=== PATIENT | female | born 1990 | race Caucasian/White ===

== ENCOUNTER 2021-07-06 06:46 | Emergency (ER) | payer MEDICAID, OTHER ==
[~2021-07-06] VITALS: Ht 165.1 cm; Wt 72.7 kg
[~2021-07-06 06:46] MED LIST: ARIP400S IM; LITH300C3 PO
[2021-07-06 07:51] LABS: COVID AG,FIA SOURCE NASOPHARYNGEAL
[2021-07-06 07:53] LABS: BASOPHILS % (AUTO) 0.2 % (0.0-2.0); EOSINOPHILS % (AUTO) 1.1 % (1.0-6.0); HEMOGLOBIN 10.2 g/dL (12.0-16.0); LYMPHOCYTES # (AUTO) 1.4 K/uL (1.0-4.8); LYMPHOCYTES % (AUTO) 21.1 % (22.0-44.0); MEAN CORPUSCULAR HEMOGLOBIN 23.5 pg (26.0-34.0); MEAN CORPUSCULAR HGB CONC 31.8 G/dL (31.0-37.0); MEAN CORPUSCULAR VOLUME 74 fL (80-100); MONOCYTES # (AUTO) 0.6 K/uL (0.1-1.0); MONOCYTES % (AUTO) 9.4 % (2.0-9.0); NEUTROPHILS # (AUTO) 4.4 K/uL (1.8-7.7); NEUTROPHILS % (AUTO) 68.2 % (40.0-70.0); PLATELET COUNT (AUTO) 301 K/uL (150-450); RED BLOOD CELL COUNT(AUTO) 4.33 MIL/uL (4.00-5.20); RED CELL DISTRIBUTION WIDTH 14.4 % (11.5-14.5)
[2021-07-06 08:05] LABS: ANION GAP 11 mmol/L (8-16); CALCIUM, TOTAL 8.9 mg/dL (8.8-10.5); CARBON DIOXIDE 23 mmol/L (22-29); CHLORIDE 105 mmol/L (98-107); CREATININE 0.63 mg/dL (0.60-1.30); GLOMERULAR FILTR. RATE CALC > 60 mL/min (>60); GLUCOSE,RANDOM 81 mg/dL (70-110); POTASSIUM 4.3 mmol/L (3.5-5.1); SODIUM SERUM 139 mmol/L (136-145); UREA NITROGEN, BLOOD 13 mg/dL (7-18)
[2021-07-06 08:11] LABS: ALANINE AMINOTRANSFERASE 45 U/L (12-78); ALBUMIN 3.4 g/dL (3.4-5.0); ALKALINE PHOSPHATASE 47 U/L (46-116); ASPARTATE AMINOTRANSFERASE 21 U/L (15-37); BILIRUBIN,TOTAL 0.1 mg/dL (0.1-1.0); TOTAL PROTEIN, SERUM 7.2 g/dL (6.4-8.2)
[2021-07-06 08:15] LABS: LITHIUM 0.27 mmol/L (0.60-1.20)
[2021-07-06 08:16] LABS: AMPHET/METH SCREEN,URINE NEGATIVE (NEGATIVE); BARBITURATE SCREEN, URINE NEGATIVE (NEGATIVE); BENZODIAZEPINES SCREEN,URINE NEGATIVE (NEGATIVE); CANNABINOID SCREEN,URINE NEGATIVE (NEGATIVE); COCAINE SCREEN,URINE NEGATIVE (NEGATIVE); METHADONE SCREEN, URINE NEGATIVE (NEGATIVE); OPIATE SCREEN,URINE NEGATIVE (NEGATIVE)
[2021-07-06 08:19] LABS: PHENCYCLIDINE SCREEN,URINE NEGATIVE (NEGATIVE)
[2021-07-06 09:30] VITALS: BP 110/65
== END 2021-07-06 10:27 | disposition home or self-care (01) ==
LOC: EMS 06:47
DX: F31.9 Bipolar disorder, unspecified (principal); Z79.899 Other long term (current) drug therapy; Z20.822 Contact with and (suspected) exposure to COVID-19
CPT/HCPCS: 36415; 80053; 80178; 80307; 85025; 87426; 99284; G0480

== ENCOUNTER 2021-07-20 09:07 | Inpatient (IN) | payer MEDICAID ==
[~2021-07-20] VITALS: Ht 160 cm; Wt 73.4 kg
[2021-07-20 10:03] LABS: BASOPHILS % (AUTO) 0.4 % (0.0-2.0); EOSINOPHILS % (AUTO) 1.1 % (1.0-6.0); HEMATOCRIT 33.4 % (36-46); HEMOGLOBIN 10.9 g/dL (12.0-16.0); LYMPHOCYTES # (AUTO) 1.4 K/uL (1.0-4.8); LYMPHOCYTES % (AUTO) 21.1 % (22.0-44.0); MEAN CORPUSCULAR HEMOGLOBIN 24.1 pg (26.0-34.0); MEAN CORPUSCULAR HGB CONC 32.7 G/dL (31.0-37.0); MEAN CORPUSCULAR VOLUME 74 fL (80-100); MONOCYTES # (AUTO) 0.5 K/uL (0.1-1.0); MONOCYTES % (AUTO) 7.5 % (2.0-9.0); NEUTROPHILS # (AUTO) 4.6 K/uL (1.8-7.7); NEUTROPHILS % (AUTO) 69.9 % (40.0-70.0); PLATELET COUNT (AUTO) 364 K/uL (150-450); RED BLOOD CELL COUNT(AUTO) 4.54 MIL/uL (4.00-5.20); RED CELL DISTRIBUTION WIDTH 16.1 % (11.5-14.5)
[2021-07-20 10:17] LABS: ANION GAP 10 mmol/L (8-16); CARBON DIOXIDE 25 mmol/L (22-29); CHLORIDE 105 mmol/L (98-107); CREATININE 0.67 mg/dL (0.60-1.30); GLOMERULAR FILTR. RATE CALC > 60 mL/min (>60); GLUCOSE,RANDOM 98 mg/dL (70-110); POTASSIUM 4.3 mmol/L (3.5-5.1); SODIUM SERUM 140 mmol/L (136-145); UREA NITROGEN, BLOOD 7 mg/dL (7-18)
[2021-07-20 10:23] LABS: ALANINE AMINOTRANSFERASE 38 U/L (12-78); ALBUMIN 3.4 g/dL (3.4-5.0); ALKALINE PHOSPHATASE 56 U/L (46-116); ASPARTATE AMINOTRANSFERASE 20 U/L (15-37); BILIRUBIN,TOTAL 0.1 mg/dL (0.1-1.0); TOTAL PROTEIN, SERUM 7.5 g/dL (6.4-8.2)
[2021-07-20] MEDS ORDERED: LORazepam 2 MG TABLET PO PRN (10:45)
[2021-07-20] MEDS ORDERED: HALOPERIDOL 5 MG TABLET PO PRN (10:45)
[2021-07-20 10:54] LABS: APPEARANCE,URINE CLEAR (CLEAR); BILIRUBIN,URINE NEGATIVE (NEGATIVE); GLUCOSE, URINE (UA) NEGATIVE (NEGATIVE); KETONES,URINE NEGATIVE (NEGATIVE); LEUKOCYTE ESTERASE ,URINE NEGATIVE (NEGATIVE); NITRATE,URINE NEGATIVE (NEGATIVE); OCCULT BLOOD,URINE NEGATIVE (NEGATIVE); PROTEIN,URINE NEGATIVE (NEGATIVE); UROBILINOGEN,URINE 0.2 mg/dL (<=1.0)
[2021-07-20 10:59] LABS: COVID AG,FIA SOURCE NASAL SWAB
[2021-07-20 10:59] LABS: AMPHET/METH SCREEN,URINE NEGATIVE (NEGATIVE); BARBITURATE SCREEN, URINE NEGATIVE (NEGATIVE); BENZODIAZEPINES SCREEN,URINE NEGATIVE (NEGATIVE); CANNABINOID SCREEN,URINE NEGATIVE (NEGATIVE); COCAINE SCREEN,URINE NEGATIVE (NEGATIVE); METHADONE SCREEN, URINE NEGATIVE (NEGATIVE); OPIATE SCREEN,URINE NEGATIVE (NEGATIVE)
[2021-07-20 11:00] LABS: PHENCYCLIDINE SCREEN,URINE NEGATIVE (NEGATIVE)
[2021-07-20 14:26] VITALS: BP 126/67
[2021-07-20 16:24] VITALS: BP 122/70
[2021-07-20] MEDS ORDERED: INFLUENZA VIRUS VACCINE QVS 2021-22 (6MO+)/PF 60 MCG/0.5 ML SYRINGE IM. ONE (16:30)
[2021-07-20] MEDS ORDERED: ALBUTEROL SULFATE HFA 90 MCG/PUFF 8 GM INHALER IH PRN (16:45)
[2021-07-20] MEDS ORDERED: GuaiFENesin/D-METHORPHAN [SUGAR-FREE] 200-20MG/10 ML SYRUP UDCUP PO PRN (16:45)
[2021-07-20] MEDS ORDERED: CloNIDine HCL 0.1 MG TABLET PO PRN (16:45)
[2021-07-20] MEDS ORDERED: IBUPROFEN 400 MG TABLET PO PRN (16:45)
[2021-07-20] MEDS ORDERED: DOCUSATE SODIUM 100 MG CAPSULE PO PRN (16:45)
[2021-07-20] MEDS ORDERED: NICOTINE 14 MG/24 HOUR PATCH TD PRN (16:45)
[2021-07-20] MEDS ORDERED: PETROLATUM,WHITE 28 GM JELLY TP PRN (16:45)
[2021-07-20] MEDS ORDERED: LOPERAMIDE HCL 2 MG CAPSULE PO PRN (16:45)
[2021-07-20] MEDS: ZOLPIDEM TARTRATE 10 MG TABLET PO PRN (20:45)
[2021-07-21 05:22] VITALS: BP 114/69
[2021-07-21 07:48] LABS: CHOL/HDL RATIO 2.9 (3.9-5.7); FREE T4 (FREE THYROXINE) 1.08 ng/dL (0.76-1.46); THYROID STIMULATING HORMONE 1.63 uIU/mL (0.36-3.74)
[2021-07-21 09:16] VITALS: BP 119/79
[2021-07-21] MEDS: LITHIUM CARBONATE 300 MG CAPSULE PO SCH ×2 (09:26→16:36)
[2021-07-21] MEDS: HydrOXYzine PAMOATE 25 MG CAPSULE PO PRN ×2 (13:33→17:38)
[2021-07-21 16:16] VITALS: BP 112/77
[2021-07-22] VITALS: BP 104/62
[2021-07-22] MEDS: ZOLPIDEM TARTRATE 10 MG TABLET PO PRN ×2 (00:01→20:44)
[2021-07-22] MEDS: HydrOXYzine PAMOATE 25 MG CAPSULE PO PRN ×4 (06:00→18:21)
[2021-07-22 06:02] VITALS: BP 112/66
[2021-07-22 08:59] VITALS: BP 123/86
[2021-07-22] MEDS: LITHIUM CARBONATE 300 MG CAPSULE PO SCH ×2 (09:03→16:47)
[2021-07-22] MEDS: ARIPiprazole 10 MG TABLET PO SCH (09:46)
[2021-07-22 16:13] VITALS: BP 117/74
[2021-07-22] MEDS: ACETAMINOPHEN 325 MG TABLET PO PRN (17:45)
[2021-07-23 05:18] VITALS: BP 103/73
[2021-07-23] MEDS: HydrOXYzine PAMOATE 25 MG CAPSULE PO PRN ×4 (05:23→20:52)
[2021-07-23] MEDS: ARIPiprazole 10 MG TABLET PO SCH (08:12)
[2021-07-23] MEDS: LITHIUM CARBONATE 300 MG CAPSULE PO SCH ×2 (08:12→16:03)
[2021-07-23 08:24] VITALS: BP 111/68
[2021-07-23 16:17] VITALS: BP 133/71
[2021-07-23] MEDS: ZOLPIDEM TARTRATE 10 MG TABLET PO PRN (20:53)
[2021-07-24 00:43] VITALS: BP 126/68
[2021-07-24] MEDS: HydrOXYzine PAMOATE 25 MG CAPSULE PO PRN ×4 (04:57→18:46)
[2021-07-24 08:12] VITALS: BP 147/76
[2021-07-24] MEDS: ARIPiprazole 10 MG TABLET PO SCH (08:20)
[2021-07-24] MEDS: LITHIUM CARBONATE 300 MG CAPSULE PO SCH ×2 (08:20→16:24)
[2021-07-24 16:31] VITALS: BP 115/68
[2021-07-24] MEDS: ACETAMINOPHEN 325 MG TABLET PO PRN (18:01)
[2021-07-24] MEDS: ZOLPIDEM TARTRATE 10 MG TABLET PO PRN (20:05)
[2021-07-25 00:56] VITALS: BP 110/62
[2021-07-25] MEDS: HydrOXYzine PAMOATE 25 MG CAPSULE PO PRN (03:08)
[2021-07-25] MEDS: HydrOXYzine PAMOATE 50 MG CAPSULE PO PRN ×4 (08:04→21:41)
[2021-07-25] MEDS: LITHIUM CARBONATE 300 MG CAPSULE PO SCH ×2 (08:04→16:12)
[2021-07-25] MEDS: ARIPiprazole 10 MG TABLET PO SCH (08:04)
[2021-07-25 08:41] VITALS: BP 109/60
[2021-07-25 16:24] VITALS: BP 126/66
[2021-07-26 01:30] VITALS: BP 119/69
[2021-07-26] MEDS: HydrOXYzine PAMOATE 50 MG CAPSULE PO PRN ×3 (01:30→11:04)
[2021-07-26] MEDS: ZOLPIDEM TARTRATE 10 MG TABLET PO PRN (01:30)
[2021-07-26] MEDS: ARIPiprazole 10 MG TABLET PO SCH (08:13)
[2021-07-26] MEDS: LITHIUM CARBONATE 300 MG CAPSULE PO SCH ×2 (08:14→16:01)
[2021-07-26 08:26] VITALS: BP 119/65
[2021-07-26] MEDS ORDERED: ARIP10TA38 PO (11:51)
[2021-07-26] MEDS ORDERED: ARIP400S IM (11:51)
[2021-07-26] MEDS ORDERED: LITH300C3 PO (11:51)
[2021-07-26 16:00] VITALS: BP 110/62
[2021-07-26] MEDS ORDERED: ARIPiprazole ER SUSPENSION 400 MG VIAL IM SCH (16:00)
[2021-07-27] MEDS ORDERED: ARIPiprazole ER SUSPENSION 400 MG VIAL IM SCH (09:00)
== END 2021-07-26 16:00 | disposition home or self-care (01) | DRG 753 ==
LOC: EMS 09:10 → B2S 11:10 → B3A 19:20
PROVIDERS: ADMIT Psychiatry & Neurology Psychiatry; ATTEND Psychiatry & Neurology Psychiatry
DX: F31.5 Bipolar disorder, current episode depressed, severe, with psychotic features (principal); R45.851 Suicidal ideations; F10.10 Alcohol abuse, uncomplicated; Z20.822 Contact with and (suspected) exposure to COVID-19; D64.9 Anemia, unspecified; Z79.899 Other long term (current) drug therapy; Z91.410 Personal history of adult physical and sexual abuse; Z91.51 Personal history of suicidal behavior
CPT/HCPCS: 80053; 80061; 80178; 81003; 84439; 84443; 85025; 99285; G0480; J0401

== ENCOUNTER 2022-10-05 07:41 | Emergency (ER) | payer MEDICAID, OTHER ==
[~2022-10-05] VITALS: Ht 162.6 cm; Wt 81.8 kg
[~2022-10-05 07:41] MED LIST changes: +ARIP10TA38 PO
[2022-10-05] MEDS ORDERED: LURA20TA PO (07:52)
[2022-10-05] MEDS ORDERED: IBUPROFEN 600 MG TABLET PO ONE (08:45)
[2022-10-05 09:50] VITALS: BP 104/56
[2022-10-05] MEDS ORDERED: IBUP-1492 PO ×2 (10:51→11:02)
== END 2022-10-05 11:04 | disposition home or self-care (01) ==
LOC: EMS 07:45
DX: S52.121A Displaced fracture of head of right radius, initial encounter for closed fracture (principal); F31.9 Bipolar disorder, unspecified; W18.30XA Fall on same level, unspecified, initial encounter; Y93.89 Activity, other specified; Y92.89 Other specified places as the place of occurrence of the external cause; Y99.8 Other external cause status
CPT/HCPCS: 99284; 73080-TC; 73110-TC; Z7502; Z7610

== ENCOUNTER 2024-01-07 07:05 | Inpatient (IN) | payer MEDICAID, OTHER ==
[~2024-01-07] VITALS: Ht 165.1 cm; Wt 89.4 kg
[~2024-01-07 07:05] MED LIST changes: +IBUP-1492 PO; +LURA20TA PO
[2024-01-07 08:50] LABS: BASOPHILS % (AUTO) 0.6 % (0.0-2.0); EOSINOPHILS % (AUTO) 2.4 % (1.0-6.0); HEMATOCRIT 34.9 % (36-46); LYMPHOCYTES % (AUTO) 27.5 % (22.0-44.0); MEAN CORPUSCULAR HEMOGLOBIN 22.3 pg (26.0-34.0); MEAN CORPUSCULAR HGB CONC 31.4 G/dL (31.0-37.0); MEAN CORPUSCULAR VOLUME 71 fL (80-100); MONOCYTES # (AUTO) 0.5 K/uL (0.1-1.0); MONOCYTES % (AUTO) 6.8 % (2.0-9.0); NEUTROPHILS # (AUTO) 4.5 K/uL (1.8-7.7); NEUTROPHILS % (AUTO) 62.7 % (40.0-70.0); PLATELET COUNT (AUTO) 310 K/uL (150-450); RED BLOOD CELL COUNT(AUTO) 4.92 MIL/uL (4.00-5.20); RED CELL DISTRIBUTION WIDTH 19.1 % (11.5-14.5); WHITE BLOOD COUNT (AUTO) 7.1 K/uL (4.5-11.0)
[2024-01-07 08:58] LABS: ANION GAP 12 mmol/L (8-16); CALCIUM, TOTAL 8.7 mg/dL (8.8-10.5); CARBON DIOXIDE 22 mmol/L (22-29); CHLORIDE 102 mmol/L (98-107); CREATININE 0.82 mg/dL (0.60-1.30); GLOMERULAR FILTR. RATE CALC > 60 mL/min (>60); GLUCOSE,RANDOM 93 mg/dL (70-110); POTASSIUM 4.2 mmol/L (3.5-5.1); SODIUM SERUM 136 mmol/L (136-145); UREA NITROGEN, BLOOD 11 mg/dL (7-18)
[2024-01-07] MEDS ORDERED: LORazepam 2 MG TABLET PO PRN (09:00)
[2024-01-07] MEDS ORDERED: HALOPERIDOL 5 MG TABLET PO PRN (09:00)
[2024-01-07] MEDS ORDERED: ZOLPIDEM TARTRATE 10 MG TABLET PO PRN (09:00)
[2024-01-07 09:01] LABS: ALCOHOL, URINE DRUG SCREEN NEGATIVE (NEGATIVE); AMPHET/METH SCREEN,URINE NEGATIVE (NEGATIVE); BARBITURATE SCREEN, URINE NEGATIVE (NEGATIVE); BENZODIAZEPINES SCREEN,URINE NEGATIVE (NEGATIVE); CANNABINOID SCREEN,URINE NEGATIVE (NEGATIVE); COCAINE SCREEN,URINE NEGATIVE (NEGATIVE); METHADONE SCREEN, URINE NEGATIVE (NEGATIVE); OPIATE SCREEN,URINE NEGATIVE (NEGATIVE); PHENCYCLIDINE SCREEN,URINE NEGATIVE (NEGATIVE)
[2024-01-07 09:16] LABS: ALCOHOL, BLOOD (SERUM) < 3 mg/dL (0-10)
[2024-01-07] MEDS ORDERED: QUEtiapine FUMARATE 100 MG TABLET PO PRN (09:30)
[2024-01-07 09:46] LABS: COVID AG,FIA SOURCE NASAL SWAB
[2024-01-07 10:05] LABS: SARS-COV2 (COVID) ANTIGEN,FIA Negative (Negative)
[2024-01-07 10:26] LABS: RBC MORPHOLOGY COMMENT ABNORMAL RBC MORPH
[2024-01-07] MEDS ORDERED: LOPERAMIDE HCL 2 MG CAPSULE PO PRN (10:30)
[2024-01-07] MEDS ORDERED: MAG HYDROX/ALUMINUM HYD/SIMETH ES 30 ML SUSPENSION UDCUP PO PRN (10:30)
[2024-01-07] MEDS ORDERED: PETROLATUM,WHITE 28 GM JELLY TP PRN (10:30)
[2024-01-07] MEDS ORDERED: IBUPROFEN 400 MG TABLET PO PRN (10:30)
[2024-01-07] MEDS ORDERED: MAGNESIUM HYDROXIDE SUSPENSION 30 ML UDCUP PO PRN (10:30)
[2024-01-07] MEDS ORDERED: NICOTINE 14 MG/24 HOUR PATCH TD PRN (10:30)
[2024-01-07] MEDS ORDERED: ALBUTEROL SULFATE HFA 90 MCG/PUFF 8 GM INHALER IH PRN (10:30)
[2024-01-07] MEDS ORDERED: CloNIDine HCL 0.1 MG TABLET PO PRN (10:30)
[2024-01-07] MEDS: ACETAMINOPHEN 325 MG TABLET PO PRN (11:14)
[2024-01-07 13:22] VITALS: BP 105/66; PULSE 89; RESP 18; TEMP 97.8; O2SAT 98
[2024-01-07] MEDS: LORazepam 2 MG TABLET PO PRN (13:27)
[2024-01-07 20:00] VITALS: BP 115/72; PULSE 69; RESP 16; TEMP 97.7; O2SAT 98
[2024-01-07] MEDS: ZOLPIDEM TARTRATE 10 MG TABLET PO PRN (20:36)
[2024-01-08 08:10] VITALS: BP 103/65; PULSE 69; RESP 16; TEMP 98; O2SAT 97
[2024-01-08 08:16] LABS: LITHIUM < 0.20 mmol/L (0.60-1.20)
[2024-01-08 08:17] LABS: HEMOGLOBIN A1C 5.4 % (3.8-5.6)
[2024-01-08 08:37] LABS: CHOL/HDL RATIO 3.1 (3.9-5.7); CHOLESTEROL 144 mg/dL (131-200); HDL CHOLESTEROL 46 mg/dL (40-60); LDL CHOL (CALC.) 83 mg/dL (0-130); THYROID STIMULATING HORMONE 2.09 uIU/mL (0.36-3.74); TRIGLYCERIDES 75 mg/dL (15-150)
[2024-01-08] MEDS: FERROUS SULFATE 325 MG EC TABLET PO SCH (12:51)
[2024-01-08] MEDS: LURASIDONE HCL 20 MG TABLET PO SCH (16:04)
[2024-01-08] MEDS: LITHIUM CARBONATE 300 MG CAPSULE PO SCH (16:05)
[2024-01-08 20:08] VITALS: BP 123/85; PULSE 99; RESP 18; TEMP 97.8
[2024-01-08] MEDS: DOCUSATE SODIUM 100 MG CAPSULE PO PRN (20:47)
[2024-01-09 08:19] VITALS: BP 106/64; PULSE 94; RESP 16; TEMP 97.6; O2SAT 99
[2024-01-09 08:33] LABS: APPEARANCE,URINE CLEAR (CLEAR); BILIRUBIN,URINE NEGATIVE (NEGATIVE); COLOR,URINE COLORLESS (YELLOW); GLUCOSE, URINE (UA) NEGATIVE (NEGATIVE); KETONES,URINE NEGATIVE (NEGATIVE); LEUKOCYTE ESTERASE ,URINE NEGATIVE (NEGATIVE); NITRATE,URINE NEGATIVE (NEGATIVE); OCCULT BLOOD,URINE NEGATIVE (NEGATIVE); PROTEIN,URINE NEGATIVE (NEGATIVE); SPECIFIC GRAVITIY, URINE 1.011 (1.003-1.030); UROBILINOGEN,URINE <=1.0 mg/dL (<=1.0)
[2024-01-09 08:48] LABS: ALCOHOL, URINE DRUG SCREEN NEGATIVE (NEGATIVE); AMPHET/METH SCREEN,URINE NEGATIVE (NEGATIVE); BARBITURATE SCREEN, URINE NEGATIVE (NEGATIVE); BENZODIAZEPINES SCREEN,URINE NEGATIVE (NEGATIVE); CANNABINOID SCREEN,URINE NEGATIVE (NEGATIVE); COCAINE SCREEN,URINE NEGATIVE (NEGATIVE); METHADONE SCREEN, URINE NEGATIVE (NEGATIVE); OPIATE SCREEN,URINE NEGATIVE (NEGATIVE); PHENCYCLIDINE SCREEN,URINE NEGATIVE (NEGATIVE)
[2024-01-09] MEDS: ONDANSETRON HCL 4 MG TABLET PO PRN (09:27)
[2024-01-09] MEDS: ONDANSETRON HCL 4 MG/2 ML VIAL IM PRN (10:20)
[2024-01-09] MEDS: BISACODYL 5 MG EC TABLET PO PRN (14:24)
[2024-01-09] MEDS: LURASIDONE HCL 80 MG TABLET PO SCH (16:07)
[2024-01-09] MEDS: BusPIRone HCL 5 MG TABLET PO SCH (18:50)
[2024-01-09 20:37] VITALS: BP 118/49; PULSE 74; RESP 16; TEMP 97.8; O2SAT 99
[2024-01-10] MEDS: GuaiFENesin/D-METHORPHAN [SUGAR-FREE] 200-20MG/10 ML SYRUP UDCUP PO PRN (03:39)
[2024-01-10 08:18] VITALS: BP 101/61; PULSE 71; RESP 16; TEMP 97.9; O2SAT 99
[2024-01-10] MEDS ORDERED: LURA80TA2 PO (14:59)
[2024-01-10] MEDS ORDERED: BUSP5TAB20 PO ×2 (15:00→15:04)
== END 2024-01-10 16:00 | disposition home or self-care (01) | DRG 753 ==
LOC: EMS 07:09 → B3A 09:35
PROVIDERS: ADMIT Psychiatry & Neurology Psychiatry; ATTEND Psychiatry & Neurology Psychiatry
PROC: GZHZZZZ Group Psychotherapy (ICD-10-PCS; principal; 2024-01-08)
DX: F31.5 Bipolar disorder, current episode depressed, severe, with psychotic features (principal); R45.851 Suicidal ideations; E66.3 Overweight; D64.9 Anemia, unspecified; Z20.822 Contact with and (suspected) exposure to COVID-19; G47.00 Insomnia, unspecified; F10.10 Alcohol abuse, uncomplicated; F41.9 Anxiety disorder, unspecified; Z79.899 Other long term (current) drug therapy; Z68.32 Body mass index [BMI] 32.0-32.9, adult
CPT/HCPCS: 80048; 80061; 80178; 80307; 81003; 83036; 83690; 84443; 84703; 85025; 99285; G0480; J2405; Q0162

== ENCOUNTER 2024-07-08 15:17 | Inpatient (IN) | payer MEDICAID ==
[~2024-07-08] VITALS: Ht 165.1 cm; Wt 89.9 kg
[~2024-07-08 15:17] MED LIST changes: -ARIP10TA38 PO; -ARIP400S IM; +BUSP5TAB20 PO; -IBUP-1492 PO; -LURA20TA PO; +LURA80TA2 PO
[2024-07-08] MEDS ORDERED: HALOPERIDOL 5 MG TABLET PO PRN (16:15)
[2024-07-08] MEDS ORDERED: INFLUENZA VIRUS VACCINE TVS (6MO+) 2024-25/PF 45 MCG/0.5 ML SYRINGE IM. ONE (16:45)
[2024-07-08 16:51] LABS: GLUCOMETER DEV NAME(LOC) POC.BV; POC SARS-COV2 AG, FIA NEGATIVE (NEGATIVE)
[2024-07-08 17:58] VITALS: BP 106/72; PULSE 71; RESP 16; TEMP 96.5; O2SAT 98
[2024-07-08] MEDS: ZOLPIDEM TARTRATE 10 MG TABLET PO PRN (20:04)
[2024-07-08 20:37] VITALS: BP 113/61; PULSE 66; RESP 18; TEMP 99.4; O2SAT 100
[2024-07-09] MEDS: LORazepam 2 MG TABLET PO PRN (01:14)
[2024-07-09] MEDS ORDERED: PETROLATUM,WHITE 28 GM JELLY TP PRN (07:45)
[2024-07-09] MEDS ORDERED: MAG HYDROX/ALUMINUM HYD/SIMETH ES 30 ML SUSPENSION UDCUP PO PRN (07:45)
[2024-07-09] MEDS ORDERED: ALBUTEROL SULFATE HFA 90 MCG/PUFF 8 GM INHALER IH PRN (07:45)
[2024-07-09] MEDS ORDERED: IBUPROFEN 600 MG TABLET PO PRN (07:45)
[2024-07-09] MEDS ORDERED: OMEPRAZOLE 20 MG CAPSULE PO PRN (07:45)
[2024-07-09] MEDS ORDERED: ACETAMINOPHEN 325 MG TABLET PO PRN (07:45)
[2024-07-09] MEDS ORDERED: MAGNESIUM HYDROXIDE SUSPENSION 30 ML UDCUP PO PRN (07:45)
[2024-07-09] MEDS ORDERED: LOPERAMIDE HCL 2 MG CAPSULE PO PRN (07:45)
[2024-07-09] MEDS ORDERED: CloNIDine HCL 0.1 MG TABLET PO PRN (07:45)
[2024-07-09] MEDS ORDERED: BACITRACIN 28 GM OINTMENT TP PRN (07:45)
[2024-07-09] MEDS ORDERED: DOCUSATE SODIUM 100 MG CAPSULE PO PRN (07:45)
[2024-07-09 08:11] VITALS: BP 129/74; PULSE 86; RESP 17; TEMP 97.3; O2SAT 99
[2024-07-09 09:19] LABS: BASOPHILS % (AUTO) 0.4 % (0.0-2.0); EOSINOPHILS % (AUTO) 1.3 % (1.0-6.0); HEMATOCRIT 34.9 % (36-46); HEMOGLOBIN 11.2 g/dL (12.0-16.0); LYMPHOCYTES # (AUTO) 1.8 K/uL (1.0-4.8); LYMPHOCYTES % (AUTO) 20.5 % (22.0-44.0); MEAN CORPUSCULAR HEMOGLOBIN 24.1 pg (26.0-34.0); MEAN CORPUSCULAR HGB CONC 32.1 G/dL (31.0-37.0); MEAN CORPUSCULAR VOLUME 75 fL (80-100); MONOCYTES # (AUTO) 0.6 K/uL (0.1-1.0); MONOCYTES % (AUTO) 6.8 % (2.0-9.0); NEUTROPHILS # (AUTO) 6.1 K/uL (1.8-7.7); PLATELET COUNT (AUTO) 271 K/uL (150-450); RED BLOOD CELL COUNT(AUTO) 4.65 MIL/uL (4.00-5.20); RED CELL DISTRIBUTION WIDTH 15.3 % (11.5-14.5); WHITE BLOOD COUNT (AUTO) 8.6 K/uL (4.5-11.0)
[2024-07-09 09:30] LABS: HEMOGLOBIN A1C 5.2 % (3.8-5.6)
[2024-07-09 09:53] LABS: ALBUMIN 3.2 g/dL (3.4-5.0); ANION GAP 7 mmol/L (8-16); CARBON DIOXIDE 26 mmol/L (22-29); CHLORIDE 105 mmol/L (98-107); CREATININE 0.72 mg/dL (0.60-1.30); GLOMERULAR FILTR. RATE CALC > 60 mL/min (>60); GLUCOSE,RANDOM 88 mg/dL (70-110); POTASSIUM 4.3 mmol/L (3.5-5.1); SODIUM SERUM 138 mmol/L (136-145); UREA NITROGEN, BLOOD 9 mg/dL (7-18)
[2024-07-09 10:42] LABS: ALANINE AMINOTRANSFERASE 15 U/L (12-78); ALKALINE PHOSPHATASE 69 U/L (46-116); ASPARTATE AMINOTRANSFERASE 20 U/L (15-37); BILIRUBIN,TOTAL 0.3 mg/dL (0.1-1.0); CHOL/HDL RATIO 2.7 (3.9-5.7); CHOLESTEROL 153 mg/dL (131-200); FREE T4 (FREE THYROXINE) 1.16 ng/dL (0.76-1.46); HCG,QUANTITATIVE 1 mIU/mL (0-6); HDL CHOLESTEROL 57 mg/dL (40-60); LDL CHOL (CALC.) 89 mg/dL (0-130); TOTAL PROTEIN, SERUM 7.6 g/dL (6.4-8.2); TRIGLYCERIDES 34 mg/dL (15-150)
[2024-07-09] MEDS: LITHIUM CARBONATE 300 MG CAPSULE PO SCH (16:36)
[2024-07-09 22:45] VITALS: BP 123/78; PULSE 80; RESP 16; TEMP 97.4; O2SAT 96
[2024-07-10 00:15] VITALS: BP 136/74
[2024-07-10] MEDS: ONDANSETRON 4 MG TABLET PO PRN (01:49)
[2024-07-10] MEDS: BENZOCAINE/MENTHOL LOZENGE PO PRN (06:04)
[2024-07-10 12:34] VITALS: BP 123/85; PULSE 79; RESP 16; TEMP 97.1; O2SAT 100
[2024-07-10] MEDS: DiphenhydrAMINE HCL 25 MG CAPSULE PO PRN (14:12)
[2024-07-10 20:06] VITALS: BP 104/67; PULSE 78; RESP 17; TEMP 97.2; O2SAT 100
[2024-07-11 10:39] VITALS: BP 101/63; PULSE 86; RESP 16; TEMP 97.1; O2SAT 100
[2024-07-11 20:22] VITALS: BP 122/78; PULSE 82; RESP 17; TEMP 97.5; O2SAT 97
[2024-07-12 08:01] VITALS: BP 131/78; PULSE 72; RESP 16; TEMP 97.8; O2SAT 99
[2024-07-12 20:18] VITALS: BP 131/90; PULSE 99; RESP 18; TEMP 97.2; O2SAT 100
[2024-07-13 09:07] VITALS: BP 92/68; PULSE 83; RESP 18; TEMP 97; O2SAT 97
== END 2024-07-13 15:34 | disposition home or self-care (01) | DRG 754 ==
LOC: B2S 16:39
PROVIDERS: ADMIT Psychiatry & Neurology Psychiatry; ATTEND Psychiatry & Neurology Psychiatry
DX: F32.9 Major depressive disorder, single episode, unspecified (principal); R45.851 Suicidal ideations; E66.9 Obesity, unspecified; Z20.822 Contact with and (suspected) exposure to COVID-19; Z68.33 Body mass index [BMI] 33.0-33.9, adult; F19.10 Other psychoactive substance abuse, uncomplicated; G47.00 Insomnia, unspecified; F41.9 Anxiety disorder, unspecified; K59.00 Constipation, unspecified; M54.50 Low back pain, unspecified; Z59.00 Homelessness unspecified
CPT/HCPCS: 80053; 80061; 80178; 83036; 84439; 84443; 84702; 85025; Q0162

== ENCOUNTER 2024-09-19 04:42 | Emergency (ER) | payer MEDICAID, OTHER ==
[~2024-09-19] VITALS: Ht 165.1 cm; Wt 86.4 kg
[~2024-09-19 04:42] MED LIST changes: -BUSP5TAB20 PO; -LURA80TA2 PO
[2024-09-19 04:44] VITALS: BP 107/69; PULSE 84; RESP 18; TEMP 98.5; O2SAT 100
[2024-09-19] MEDS ORDERED: LORA1TAB25 PO (05:22)
[2024-09-19] MEDS: LORazepam 2 MG TABLET PO ONE (05:27)
== END 2024-09-19 05:31 | disposition home or self-care (01) ==
LOC: EMS 04:42
DX: R46.89 Other symptoms and signs involving appearance and behavior (principal); G47.00 Insomnia, unspecified; Z79.899 Other long term (current) drug therapy
CPT/HCPCS: 99283